=== PATIENT | male | born 1995 | race Two or more races ===

== ENCOUNTER 2019-07-05 15:53 | Emergency (ER) | payer SELFPAY ==
[~2019-07-05] VITALS: Ht 180.3 cm; Wt 67.1 kg
[2019-07-05 16:03] VITALS: BP 133/61; Ht 180.3 cm; Wt 67.1 kg
== END 2019-07-05 16:27 | disposition home or self-care (01) ==
LOC: ED 15:53
DX: F15.93 Other stimulant use, unspecified with withdrawal (principal); Z76.0 Encounter for issue of repeat prescription